=== PATIENT | male | born 1940 | race Caucasian/White ===

== ENCOUNTER 2017-06-04 23:13 | Emergency (ER) | payer MEDICARE ==
[~2017-06-04] VITALS: Ht 185.4 cm; Wt 100.0 kg
[2017-06-04] MEDS ORDERED: LISI-424 PO (23:37)
[2017-06-04] MEDS ORDERED: TAMS-11 PO (23:38)
[2017-06-05] MEDS ORDERED: LIDOCAINE 1%, 10ML SQ ONE
[2017-06-05] MEDS ORDERED: LIDOCAINE 1%, 10ML ONE (00:04)
[2017-06-05 01:23] VITALS: BP 164/91
== END 2017-06-05 02:12 | disposition home or self-care (01) ==
LOC: ED 23:58
DX: S01.312A Laceration without foreign body of left ear, initial encounter (principal); I10 Essential (primary) hypertension; Z98.2 Presence of cerebrospinal fluid drainage device; Y00.XXXA Assault by blunt object, initial encounter; Y93.89 Activity, other specified; Y92.521 Bus station as the place of occurrence of the external cause; Y99.8 Other external cause status
CPT/HCPCS: 12011; 13152; 70450; 99285

== ENCOUNTER 2017-06-12 17:52 | Emergency (ER) | payer MEDICARE ==
[~2017-06-12] VITALS: Ht 180.3 cm; Wt 117.3 kg
[~2017-06-12 17:52] MED LIST: LISI-424 PO; TAMS-11 PO
[2017-06-12 17:56] VITALS: BP 165/79
== END 2017-06-12 19:03 | disposition home or self-care (01) ==
LOC: ED 18:40
DX: S01.312D Laceration without foreign body of left ear, subsequent encounter (principal); I10 Essential (primary) hypertension; Y08.89XD Assault by other specified means, subsequent encounter
CPT/HCPCS: 99282

== ENCOUNTER 2021-03-04 10:32 | Emergency (ER) | payer MEDICARE ==
[~2021-03-04] VITALS: Ht 180.3 cm; Wt 124.0 kg
[~2021-03-04 10:32] MED LIST changes: -LISI-424 PO; +LISI-606 PO
[2021-03-04 10:46] VITALS: BP 186/92
[2021-03-04 11:46] LABS: BASOPHILS % (AUTO) 1 % (0-1); EOSINOPHILS % (AUTO) 4 % (1-7); LYMPHOCYTES % (AUTO) 14 % (22-44); MEAN CORPUSCULAR HGB CONC 33.8 g/dL (33.2-36.2); MEAN PLATELET VOLUME 8.9 fL (7.4-10.4); MONOCYTES % (AUTO) 9 % (2-9); NEUTROPHILS % (AUTO) 72 % (42-75); PLATELET COUNT 228 x10^3/uL (130-400); RED CELL DISTRIBUTION WIDTH 13.7 % (9.4-14.8)
[2021-03-04 11:47] LABS: ALBUMIN 3.4 g/dL (3.4-5.0); ANION GAP 7 mmol/L (5-15); CALCIUM 9.1 mg/dL (8.5-10.1); CHLORIDE 109 mmol/L (98-107); CREATININE 0.88 mg/dL (0.7-1.3)
--- NOTE | 2021-03-04 14:50 | NUR ---
PATIENT TO ROOM FROM LOBBY
--- NOTE | 2021-03-04 14:54 | NUR ---
PT BROUGHT BACK FROM TRIAGE WITH CHIEF COMPLAINT OF BILAT LEG ITCHING
== END 2021-03-04 16:07 | disposition home or self-care (01) ==
LOC: ED 10:42
DX: L50.0 Allergic urticaria (principal); I10 Essential (primary) hypertension
CPT/HCPCS: 36415; 80048; 82040; 85025; 99283

== ENCOUNTER 2021-03-12 00:13 | Emergency (ER) | payer MEDICARE ==
[~2021-03-12] VITALS: Ht 180.3 cm; Wt 120.0 kg
[2021-03-12 00:36] VITALS: BP 164/78
[2021-03-12 01:17] LABS: BASOPHILS % (AUTO) 1 % (0-1); EOSINOPHILS % (AUTO) 4 % (1-7); LYMPHOCYTES % (AUTO) 14 % (22-44); MEAN CORPUSCULAR HEMOGLOBIN 32.5 pg (27.5-34.5); MEAN PLATELET VOLUME 8.9 fL (7.4-10.4); MONOCYTES % (AUTO) 9 % (2-9); NEUTROPHILS % (AUTO) 73 % (42-75); PLATELET COUNT 226 x10^3/uL (130-400); RED BLOOD COUNT 4.62 x10^6/uL (4.38-5.82); RED CELL DISTRIBUTION WIDTH 13.6 % (9.4-14.8)
[2021-03-12 01:29] LABS: ALANINE AMINOTRANSFERASE 28 U/L (12-78); ALBUMIN 3.3 g/dL (3.4-5.0); ANION GAP 5 mmol/L (5-15); CALCIUM 8.7 mg/dL (8.5-10.1); CHLORIDE 106 mmol/L (98-107)
[2021-03-12 01:33] LABS: ALKALINE PHOSPHATASE 76 U/L (45-117); BILIRUBIN,TOTAL 0.6 mg/dL (0.2-1.0); TOTAL PROTEIN 7.5 g/dL (6.4-8.2); TROPONIN I < 0.015 ng/mL (0.000-0.045)
== END 2021-03-12 03:30 | disposition home or self-care (01) ==
LOC: ED 01:00
DX: R60.0 Localized edema (principal); R53.1 Weakness; B86 Scabies; R42 Dizziness and giddiness; I10 Essential (primary) hypertension
CPT/HCPCS: 36415; 71045; 80053; 83880; 84484; 85025; 93005; 99285